=== PATIENT | female | born 1940 ===

== ENCOUNTER → 2017-07-21 | Outpatient (CLI) | payer MEDICARE | LOC: LAB 12:30 | DX: R07.9 Chest pain, unspecified (principal) | CPT/HCPCS: 84484 ==

== ENCOUNTER → 2019-04-04 | Outpatient (CLI) | payer MEDICARE ==
[2019-04-05 09:52] LABS: Candida species (DNA Probe) Negative (NEGATIVE); G. vaginalis (DNA Probe) Negative (NEGATIVE); T. vaginalis (DNA Probe) Negative (NEGATIVE)
== END | disposition home or self-care (01) ==
LOC: LAB SHORT 09:51 → LAB 09:51
PROVIDERS: Obstetrics & Gynecology
DX: N76.0 Acute vaginitis (principal)
CPT/HCPCS: 87480; 87510; 87660

== ENCOUNTER 2019-11-08 07:43 | Day surgery (SDC) | payer MEDICARE, OTHER ==
[~2019-11-08] VITALS: Ht 172.7 cm; Wt 61.5 kg
[~2019-11-08 07:43] MED LIST: AMLO5 PO; CALCIUM PO; CENTRUM SILVER1 EAC2 PO; FISH OIL PO; LOVA40 PO; LUMIGAN2.5 ML; Lisinopril-Hct1 EAC4 PO; POTA10T PO
[2019-11-08] MEDS ORDERED: Aspir 8181 MG PO (08:53)
--- NOTE | 2019-11-08 09:07 | NUR ---
LATE ENTRY 0822 Ambulatory in Day Surgery History, Chart, Medications and Allergies reviewed before start of procedure. Lungs clear T/O to Auscultation. Patient confirms NPO status and agrees with scheduled surgery.
--- NOTE | 2019-11-08 10:03 | NUR ---
11/08/19 1003 Connie Lopez NO PREOPERATIVE ANTIBIOTICS ORDERED
--- NOTE | 2019-11-08 14:53 | NUR ---
MIDSHIFT NOTE PT HAS DONE VERY WELL POST OP. DENIES PAIN, ARANA DRAINING WELL, TOLERATING PO, AMBULATING. NO VAG BLEEDING NOTED. PAD JUST CHANGED. WILL GIVE REPORT TO ANOTHER RN AT THIS TIME.
--- NOTE | 2019-11-08 15:12 | NUR ---
REPORT RECIEVED FROM GULSHAN POOLE. ASSUMED PT CARE AT THIS TIME
--- NOTE | 2019-11-08 17:41 | NUR ---
DISCHARGE/TRANSPORT TO [facility]: REPORT GIVEN TO RN AT [facility]. [facility] HERE FOR PT AT ABOUT 1700. TRANSPORTED OUT VIA WHEELCHAIR.
--- NOTE | 2019-11-08 18:01 | NUR ---
SUMMARY: PT DOING WELL POST OP. NO ACUTE CHANGE SINCE ASSUMED PT CARE. VSS, A/O. PT DENIES PAIN, ABLE TO TAKE WALKS. NO SAFETY CONCERNS AT THIS TIME. WILL CTM AND REPORT TO SAM RN.
--- NOTE | 2019-11-09 03:40 | NUR ---
SHIFT SUMMARY PT IS A/O X4 AND IND. IN ROOM. PT HAS BEEN UP TO AMBULATE MULT TIMES. PT HAS HAD NO C/O PAIN THROUGHOUT THE NIGHT. PT IS TOLERATING REGULAR DIET WITH NO N/V. HAS HAD ARANA IN PLACE THROUGHOUT THE SHIFT. VSS. NO ACUTE CHANGES OVERNIGHT. ASSISTED WITH ADL'S PRN.
--- NOTE | 2019-11-09 04:17 | NUR ---
YASMEEN CASTILLO'D AT THIS TIME
[2019-11-09 04:23] LABS: BASOPHILS ABSOLUTE AUTO 0.01 K/mm3 (0.00-0.23); BASOPHILS PERCENT AUTO 0 % (0-2); EOSINOPHILS ABSOLUTE AUTO 0.01 K/mm3 (0.00-0.68); EOSINOPHILS PERCENT AUTO 0 % (0-6); Hemoglobin 12.6 g/dL (11.5-16.0); IMMATURE GRAN ABSOLUTE AUTO 0.03 K/mm3 (0.00-0.10); IMMATURE GRAN PERCENT AUTO 0 % (0-1); LYMPHOCYTES ABSOLUTE AUTO 1.43 K/mm3 (0.84-5.20); LYMPHOCYTES PERCENT AUTO 14 % (21-46); MONOCYTES ABSOLUTE AUTO 0.64 K/mm3 (0.16-1.47); MONOCYTES PERCENT AUTO 6 % (4-13); Mean Corpuscular HGB 28.2 pg (26.0-34.0); Mean Corpuscular HGB Conc 32.3 g/dL (31.5-36.5); Mean Platelet Volume 11.1 fL (9.1-12.4); NEUTROPHILS ABSOLUTE AUTO 7.85 K/mm3 (1.96-9.15); NEUTROPHILS PERCENT AUTO 79 % (41-73); Platelet Count 241 K/mm3 (150-400); RDW Coefficient Variation 13.3 % (11.7-14.2); RDW Standard Deviation 43.1 fL (35.1-46.3); Red Blood Cell Count 4.47 M/mm3 (3.80-5.20); White Blood Cell Count 9.97 K/mm3 (4.00-11.30)
[2019-11-09 04:27] LABS: Mean Corpuscular Volume 87 fL (80-100)
--- NOTE | 2019-11-09 14:59 | NUR ---
DISCHARGE SUMMARY PT A&OX4, VSS, LEFT FLOOR WITH ALL PERSONAL POSSESSIONS TO GO HOME WITH DAUGHTER. DISCHARGE INSTRUCTIONS PROVIDED. PT REP UNDERSTANDING THOSE INSTRUCTIONS INCLUDING FU WITH DR JOHNS, NO PUSHING/PULLING/LIFTING > 15 LBS, PELVIC REST X 6 WKS. IV DC'D.
== END 2019-11-09 15:01 | disposition home or self-care (01) ==
LOC: ORSCMMR 07:43 → ORD 09:30 → SURS 11:00 → ORSCMMR 11-09 15:01 → SURS 11-09 15:01
PROVIDERS: Obstetrics & Gynecology
PROC: 0JQC0ZZ Repair Pelvic Region Subcutaneous Tissue and Fascia, Open Approach (ICD-10-PCS; principal; 2019-11-09)
DX: N81.10 Cystocele, unspecified (principal); I10 Essential (primary) hypertension; Z79.899 Other long term (current) drug therapy
CPT/HCPCS: 36415; 85025; J1100; J2250; J2405; J2704; J3010; J7120

== ENCOUNTER → 2020-01-21 | Outpatient (CLI) | payer MEDICARE ==
[~2020-01-21] MED LIST changes: +Aspir 8181 MG PO
== END | disposition home or self-care (01) ==
LOC: LAB 09:50 → LAB SHORT 09:50
DX: N89.8 Other specified noninflammatory disorders of vagina (principal)
CPT/HCPCS: 87070; 87147; 87205

== ENCOUNTER → 2020-05-18 | Outpatient (CLI) | payer MEDICARE | END | disposition home or self-care (01) | LOC: LAB 15:45 → LAB SHORT 15:45 | DX: N90.89 Other specified noninflammatory disorders of vulva and perineum (principal) | CPT/HCPCS: 87070; 87205 ==